=== PATIENT | female | born 1965 | race Caucasian/White ===

== ENCOUNTER 2019-01-16 08:00 | Outpatient (REF) | payer BC, SELFPAY ==
[2019-01-16 21:13] LABS: ALT 27 U/L (14-59); AST 25 U/L (15-37); Albumin 3.8 g/dL (3.4-5.0); Alkaline Phosphatase 106 U/L (46-116); Anion Gap 8.6 mmol/L (3-11); BUN 18 mg/dL (7-18); Bilirubin, Total 0.5 mg/dL (0.2-1.0); CO2 29.4 mmol/L (21.0-32.0); CREATININE 0.89 mg/dL (0.55-1.02); Calculated LDL 150 mg/dL; Chloride 103 mmol/L (98-107); Cholesterol 232 mg/dL (<200); Glucose 107 mg/dL (74-106); HDL Cholesterol 62 mg/dL (40-60); Potassium 4.4 mmol/L (3.5-5.1); Sodium 141 mmol/L (136-145); Total Protein 7.4 g/dL (6.4-8.2); Triglyceride 103 mg/dL (<150)
== END 2019-01-16 08:20 ==
LOC: NCHCN 08:00
PROVIDERS: PCP Family Medicine; Visit Provider Family Medicine
DX: Z00.00 Encounter for general adult medical examination without abnormal findings (principal); E66.01 Morbid (severe) obesity due to excess calories
CPT/HCPCS: 80053; 80061

== ENCOUNTER 2020-04-10 10:17 | Outpatient (REF) | payer BC, SELFPAY ==
[2020-04-10 13:19] LABS: ALT 25 U/L (14-59); AST 27 U/L (15-37); Albumin 3.6 g/dL (3.4-5.0); Alkaline Phosphatase 99 U/L (46-116); Anion Gap 7.7 mmol/L (3-11); BUN 20 mg/dL (7-18); Bilirubin, Total 0.4 mg/dL (0.2-1.0); CO2 28.3 mmol/L (21.0-32.0); CREATININE 0.8 mg/dL (0.55-1.02); Calcium 8.9 mg/dL (8.5-10.1); Calculated LDL 126 mg/dL (<100); Chloride 105 mmol/L (98-107); Cholesterol 207 mg/dL (<200); Glucose 109 mg/dL (74-106); HDL Cholesterol 67 mg/dL (40-60); Potassium 5.1 mmol/L (3.5-5.1); Sodium 141 mmol/L (136-145); Total Protein 7.3 g/dL (6.4-8.2); Triglyceride 73 mg/dL (<150)
== END 2020-04-10 10:18 | disposition home or self-care (01) ==
LOC: NCHCN 10:17
PROVIDERS: PCP Family Medicine; Visit Provider Family Medicine
DX: E66.01 Morbid (severe) obesity due to excess calories (principal)
CPT/HCPCS: 80053; 80061

== ENCOUNTER 2020-04-17 16:32 | Outpatient (REF) | payer BC, SELFPAY ==
--- NOTE | 2020-04-17 14:30 | PAPFT_PTH ---
PATIENT: Alesia Howell LOC: [facility] U#:[id number] AGE/SX: 55/F ROOM: RE04/17/[address]: Seamus Coronado : 1965 BED: DIS: 04/17/2020 SPEC #: [id number] RECD: 04/18/20 12:54 STATUS: EDDA RELast #: [id number] SURYA: 04/17/20 14:[address]: Seamus Coronado DEPT: [facility] Cytology RECD BY: Gayle Alamo Tissues: 1 - CX/ENDOCX FOR PAP SMEARS Procedures: PAP THIN PREP/[facility] Screening HPV DNA PROBE Comments: [id number]
== END 2020-04-17 16:33 | disposition home or self-care (01) ==
LOC: NCHCN 16:32
PROVIDERS: PCP Family Medicine; Visit Provider Family Medicine
DX: Z12.4 Encounter for screening for malignant neoplasm of cervix (principal); Z11.51 Encounter for screening for human papillomavirus (HPV); Z00.00 Encounter for general adult medical examination without abnormal findings
CPT/HCPCS: 88142; 87624

== ENCOUNTER 2022-12-10 20:10 | Outpatient (REF) | payer OTHER, SELFPAY ==
[2022-12-10 15:58] LABS: HCT 46.7 % (36.0-46.0); HGB 15.1 g/dL (11.2-15.7); MCH 27.5 pg (27.0-33.0); MCHC 32.3 % (32.0-36.0); MCV 85 fL (80-95); MPV 10.3 fL (8.0-11.0); Platelet Count 250 10^3/uL (130-400); RBC 5.49 10^6/uL (3.93-5.22); RDW 13.3 % (11.7-14.6); WBC 4.28 10^3/uL (4.4-10.8)
[2022-12-10 16:28] LABS: Hemoglobin A1C 5.7 % (<5.7)
[2022-12-10 16:40] LABS: ALT 26 U/L (14-59); AST 28 U/L (15-37); Albumin 3.7 g/dL (3.4-5.0); Alkaline Phosphatase 94 U/L (46-116); Anion Gap 7.5 mmol/L (3-11); BUN 17 mg/dL (7-18); Bilirubin, Total 0.4 mg/dL (0.2-1.0); CO2 27.5 mmol/L (21.0-32.0); CREATININE 0.8 mg/dL (0.55-1.02); Calcium 9.3 mg/dL (8.5-10.1); Calculated LDL 149 mg/dL (<100); Chloride 106 mmol/L (98-107); Cholesterol 232 mg/dL (<200); Estimated GFR 84.82 (mL/min/1.73m2); Glucose 103 mg/dL (74-106); HDL Cholesterol 63 mg/dL (40-60); Potassium 4.5 mmol/L (3.5-5.1); Sodium 141 mmol/L (136-145); TSH (W/Ref FT4) 3.09 uIU/mL (0.36-3.74); Triglyceride 102 mg/dL (<150)
== END 2022-12-10 20:11 | disposition home or self-care (01) ==
LOC: NCHCN 20:10
PROVIDERS: PCP Family Medicine; Visit Provider Family Medicine
DX: Z00.00 Encounter for general adult medical examination without abnormal findings (principal); E66.01 Morbid (severe) obesity due to excess calories; R73.03 Prediabetes; R06.09 Other forms of dyspnea
CPT/HCPCS: 80053; 80061; 85027; 83036; 84443

== ENCOUNTER 2024-02-17 13:54 | Outpatient (REF) | payer OTHER, SELFPAY ==
--- OUTSIDE RECORDS SUMMARY | 2024-02-17 13:56 | XMS_ITS ---
Author Organization Unknown Address [address] [place] [address] [phone] Phone Care Team Providers Care Cone Cleaner Name Role Phone ODILIA Marrero Attending Unavailable Social History Type Status Start Date End Date Code Code Syst em Smoking History Former smoker [id number] SNOMED CT Sex Female Hospital Discharge Instructions Should you have any questions prior to discharge, please contact a member of your healthcare team. If you have left the hospital and have any questions, please contact your primary care physician. Reason For Referral No Data Found Plan of Treatment PSG NIGHT 03/21/2023 Encounters Encounter Diagnosis Start Date Code Code Sys tem Snoring 12/29/2022 [id number] SNOMED-CT Personal Care Team Section Performer Name Performer Role Active Date Inactive Da te
--- OUTSIDE RECORDS SUMMARY | 2024-02-17 13:56 | XMS_ITS ---
Author Organization Unknown Address [address] [place] [address] [phone] Phone Care Team Providers Care Bridal Sales Consultant Name Role Phone INCO Long Attending Unavailable Social History Type Status Start Date End Date Code Code Syst em Smoking History Former smoker [id number] SNOMED CT Sex Female Hospital Discharge Instructions Should you have any questions prior to discharge, please contact a member of your healthcare team. If you have left the hospital and have any questions, please contact your primary care physician. Reason For Referral No Data Found Plan of Treatment PSG NIGHT 03/21/2023 Encounters Encounter Diagnosis Start Date Code Code Sys tem Other forms of dyspnea 02/11/2023 SNOME D-CT Personal Care Team Section Performer Name Performer Role Active Date Inactive Da te
--- OUTSIDE RECORDS SUMMARY | 2024-02-17 13:56 | XMS_ITS ---
Author Organization Unknown Address [address] [place] [address] [phone] Phone Care Team Providers Care Correctional Substance Abuse Counselor Name Role Phone ERICKBELEM REKHA Attending Unavailable Social History Type Status Start Date End Date Code Code Syst em Smoking History Former smoker [id number] SNOMED CT Sex Female Hospital Discharge Instructions Should you have any questions prior to discharge, please contact a member of your healthcare team. If you have left the hospital and have any questions, please contact your primary care physician. Reason For Referral No Data Found Plan of Treatment PSG NIGHT 03/21/2023 Encounters Encounter Diagnosis Start Date Code Code Sys tem Obstructive sleep apnea (adult) (pediatric) 03/21/2023 SNOMED-CT Personal Care Team Section Performer Name Performer Role Active Date Inactive Da te
--- OUTSIDE RECORDS SUMMARY | 2024-02-17 13:57 | XMS_ITS | Encounter Summary ---
Author Organization [facility] Address [address] [place] [address] Care Team Providers Care Wind Turbine Design Engineer Name Role Phone None, Provider Primary Care Provider Unavailabl e Reason for Referral * Radiology Services (Routine) - New Request Specialty Diagnoses / Procedures Referred By Jacky acuna Referred To Contact Diagnoses Axillary lump, right Procedures MA BREAST CONSULT OUTSIDE IMAGES Adrian Coronado MD 4 [facility] [address] [place] [phone] Phone: tel: fax: Referral ID Status Reason Start Date Expiration Date V isits Requested Visits Authorized [id number] New Request 03/26/2020 1 1 Reason for Visit * Radiology Services (Routine) - New Request Specialty Diagnoses / Procedures Referred By Jacky acuna Referred To Contact Diagnoses Axillary lump, right Procedures MA BREAST CONSULT OUTSIDE IMAGES Adrian Coronado MD 4 [facility] [address] [place] [phone] Phone: tel: fax: Referral ID Status Reason Start Date Expiration Date V isits Requested Visits Authorized [id number] New Request 03/26/2020 1 1 Encounter Details Date Type Department Care Team (Latest Contact Info) Description 03/26/2020 12:15 EST - 03/26/2020 23:59 EST Hospital Encounter [facility] Breast Imaging Mammography - Main [place] [address] [place] [address] Axillary lump, right Discharge Disposition: Home or Self Care Social History Tobacco Use Types Packs/Day Years Used Date Smoking Tobacco: Never Assessed Interpersonal Safety Answer Date Record ed Physically Hurt Never 03/24/2020 Verbally Threaten Not on file 03/24/2020 Comments Unknown Sex and Gender Information Value Date Recorded Sex Assigned at Not on file Legal Sex Female 18:00 EST Gender Identity Not on file Sexual Orientation Not on file documented as of this encounter Discharge Disposition Disposition Code Departure Means Destination Home or Self Care documented in this encounter Plan of Treatment Not on file documented as of this encounter Procedures Procedure Name Priority Date/Time Associated Diagnosis Comments MA BREAST CONSULT OUTSIDE IMAGES Routine 03/26/2020 12:15 EST Axillary lump, right documented in this encounter Results * (ABNORMAL) MA BREAST CONSULT OUTSIDE IMAGES (03/26/2020 12:15 EST) Anatomical Region Laterality Modality Breast Mammography 03/26/2020 15:2 6 EST Narrative 03/26/2020 15:26 EST MA BREAST CONSULT OUTSIDE IMAGES ??03/26/2020 12:20 PM Signs and Symptoms/Comments: Unspecified lump in axillary tail of the right breast Comparison: None. Baseline. Technique: This report represents second read interpretation of diagnostic mammography and ultrasound images obtained at [facility] on March 19, 2020. Findings: Tissue Density: There are scattered areas of fibroglandular density. RIGHT BREAST MAMMOGRAM: 2-D/3-D views of the right breast were performed in the CC, XCCL, and MLO projections. Additionally, a 2-D ML view and 2-D spot (non-magnified) CC views of the right breast were performed. A triangle marker is present over the superior breast, denoting the location of palpable concern. There is no mammographic abnormality seen within the breast tissue immediately subjacent to the triangle marker, however a morphologically normal-appearing lymph node is seen in the right axilla, and may possibly correspond to the area of palpable concern. At the 12:00 position at posterior depth, 13 cm from the nipple, there are grouped microcalcifications. These were evaluated with 2D non-magnified spot views, as the magnification device at the outside facility was reportedly not operational at the time of this examination. Therefore, these calcifications have not undergone magnified imaging at this time. RIGHT BREAST ULTRASOUND: Selected grayscale and color Doppler static ultrasound images of the right breast are provided. On images labeled 6:00, 2 cm from the nipple there is a vague hypoechoic region which measures 0.5 x 0.6 x 0.8 cm. This is within a patch of fibroglandular tissue. This area demonstrates no significant posterior features or internal vascularity. Additional imaging performed later on the same day labeled right breast 6:00 demonstrates calipers on a somewhat elongated tubular shaped hypoechoic structure which measures 1.2 x 0.3 x 1 cm. Given the appearance of the surrounding architecture in this location, this is felt to likely be the same finding as described above. It is difficult to determine if this represents a duct, shadowing from an adjacent Nabil's ligament, or a true mass on the provided still images. Morphologically normal-appearing tissue is seen in the right axilla on images labeled area of palp. Elsewhere throughout the breast there is no suspicious sonographic finding demonstrated on the provided imaging. LEFT BREAST MAMMOGRAM: 2-D/3-D views of the left breast were performed in the CC and MLO projections There is no suspicious mass, unexplained architectural distortion, or suspicious grouped microcalcifications. IMPRESSION RIGHT BREAST: BI-RADS 0: Incomplete- Need additional imaging evaluation and/or prior studies for comparison. IMPRESSION LEFT BREAST: BI-RADS 1: Negative. RECOMMENDATIONS: 1. ??The area of palpable concern in the superior right breast may correspond to an axillary lymph node. Further evaluation with targeted ultrasound of the right axilla is recommended. 2. ??Grouped calcifications in the 12:00 position of the right breast, 13 cm from the nipple have not been evaluated with magnification views. Therefore, 2-D magnified CC and ML spot compression views of these calcifications should be performed for complete assessment. 3. ??Incidental sonographic finding in the right breast at 6:00, 2 cm from the nipple is felt to be incompletely characterized. It is unclear based on the provided images of this represents a duct, shadowing from adjacent Nabil's ligament, or a true mass. Therefore, further evaluation with targeted ultrasound evaluation of the lower right breast is recommended. OVERALL BI-RADS ASSESSMENT: BI-RADS 0: Incomplete- Need additional imaging evaluation and/or prior studies for comparison. us Adrian Coronado MD IMG MAMMOGRAPHY ORDER KEVIN Final Result documented in this encounter Visit Diagnoses Diagnosis Axillary lump, right documented in this encounter Care Teams Wind Turbine Design Engineer Relationship Specialty Start Date End Date None, Provider PCP - General 01/27/11 04/14/20 documented as of this encounter
--- OUTSIDE RECORDS SUMMARY | 2024-02-17 13:57 | XMS_ITS | Encounter Summary ---
Author Organization [facility] Address [address] [place] [address] Care Team Providers Care Lcac Radar Operator/Navigator Name Role Phone None, Provider Primary Care Provider Unavailabl e Reason for Visit * Reason Onset Date Comments Appointment Related 03/27/2020 Encounter Details Date Type Department Care Team (Late st Contact Info) Description 03/27/2020 Telephone [facility] Breast Imaging Mammography - Main [address] [address] Liz Cee Appointment Related Social History Tobacco Use Types Packs/Day Years [...] on file documented as of this encounter Miscellaneous Notes * Telephone Encounter - Liz Cee - 03/27/2020 0925 EST Spoke with patient and she is now scheduled for breast imaging on 04/09/20. documented in this encounter Plan of Treatment Not on file documented as of this encounter Visit Diagnoses Not on filedocumented in this encounter Care Teams Lcac Radar Operator/Navigator Relationship Specialty Start Date End Date None, Provider PCP - General 01/27/11 04/14/20 documented as of this encounter
--- OUTSIDE RECORDS SUMMARY | 2024-02-17 13:57 | XMS_ITS | Encounter Summary ---
Author Organization [facility] Address [address] [place] [address] Care Team Providers Care Avionics Technician Name Role Phone None, Provider Primary Care Provider Unavailabl e Reason for Referral * Radiology Services (Routine) - New Request Specialty Diagnoses / Procedures Referred By Jacky acuna Referred To Contact Diagnoses Inconclusive mammogram Procedures MA BREAST DIAGNOSTIC RIGHT Adrian Coronado MD 4 [facility] [address] [place] [phone] Phone: tel: fax: Referral ID Status Reason Start Date Expiration Date V isits Requested Visits Authorized [id number] New Request 03/27/2020 1 1 Reason for Visit * Radiology Services (Routine) - New Request Specialty Diagnoses / Procedures Referred By Jacky acuna Referred To Contact Diagnoses Inconclusive mammogram Procedures MA BREAST DIAGNOSTIC RIGHT Adrian Coronado MD 4 [facility] [address] [place] [phone] Phone: tel: fax: Referral ID Status Reason Start Date Expiration Date V isits Requested Visits Authorized [id number] New Request 03/27/2020 1 1 Encounter Details Date Type Department Care Team (Latest Contact Info) Description 04/09/2020 9:00 EST - 04/09/2020 9:01 EST Hospital Encounter [facility] Breast Imaging Mammography - Main [place] [address] [place], [place] [address] Inconclusive mammogram Discharge Disposition: Home or Self Care Social History Tobacco Use Types Packs/Day Years Used Date Smoking Tobacco: Never Assessed Interpersonal Safety Answer Date Record ed Physically Hurt Never 03/24/2020 Verbally Threaten Not on file 03/24/2020 Comments No Sex and Gender Information Value Date Recorded Sex Assigned at Not on file Legal Sex Female 18:00 EST Gender Identity Not on file Sexual Orientation Not on file COVID-19 Exposure Response Date Recorded In the last month, have you been in contact with someone who was confirmed or suspected to have Coronavirus / COVID-19? No / Unsure 04/09/2020 9:01 EST documented as of this encounter Discharge Disposition Disposition Code Departure Means Destination Home or Self Care documented in this encounter Plan of Treatment Not on file documented as of this encounter Procedures Procedure Name Priority Date/Time Associated Diagnosis Comments MA BREAST DIAGNOSTIC RIGHT Routine 04/09/2020 9:36 EST Inconclusive mammogram documented in this encounter Results * (ABNORMAL) MA BREAST DIAGNOSTIC RIGHT (04/09/2020 9:36 EST) Anatomical Region Laterality Modality Breast Right Mammography 04/09/2020 11:1 2 EST Impressions 04/09/2020 11:12 EST Right breast: BI-RADS Category 4: Suspicious. Overall BI-RADS Category 4: Suspicious. Recommendation: A stereotactic biopsy is recommended of the coarse heterogeneous and loosely grouped calcifications at 12:00, 13 cm out from the nipple in the right breast. Alternatively a six-month follow-up mammogram with spot magnification CC and ML views was discussed. Currently the patient would like to pursue a stereotactic biopsy and this will be scheduled as soon as possible. The results of the imaging studies were discussed with the patient by Dr. Schwarz Portions of this document may have been prepared with speech recognition software or keyboard data processing operator techniques. Minor irregularities or keyboarding misprints may be present. Narrative 04/09/2020 11:12 EST US BREAST LIMITED RIGHT, MA BREAST DIAGNOSTIC RIGHT 04/09/2020 10:00 AM Signs and Symptoms/Comments: ?? Palp area of concern in superior right breast without mammographic correlate, as well as right breast grouped calcifications at 12:00, 13 cm from nipple, as well as vague hypoechoic region in right breast at 6:00, 2 cm from nipple Comparison: Mammograms and ultrasounds dated 03/19/2020 to present. FINDINGS: Right breast: Spot magnification CC and ML views were performed of calcifications at 12:00, 13 cm from the nipple in the right breast. There are scattered fibroglandular densities. The previously noted calcifications appear loosely grouped and coarse heterogeneous. No definite associated mass or architectural distortion is present. Ultrasound of the upper half of the right breast and targeted to 6:00, 2 cm out from the nipple was performed. No sonographic abnormality is noted to correspond with the palpable lump in the upper outer quadrant of the right breast. No sonographic abnormality is noted to correspond with the calcifications seen on the mammogram. The previously noted vague hypoechoic region at 6:00, 2 cm out from the nipple on the outside ultrasound represents normal appearing ducts. No suspicious masses or lesions are noted. us Adrian Coronado MD IMG MAMMOGRAPHY ORDER KEVIN Final Result documented in this encounter Visit Diagnoses Diagnosis Inconclusive mammogram documented in this encounter Care Teams Avionics Technician Relationship Specialty Start Date End Date None, Provider PCP - General 01/27/11 04/14/20 documented as of this encounter
--- OUTSIDE RECORDS SUMMARY | 2024-02-17 13:57 | XMS_ITS | Encounter Summary ---
Author Organization [facility] Address [address] [place] [address] Care Team Providers Care Turn Supervisor Name Role Phone None, Provider Primary Care Provider Unavailabl e Reason for Visit * (Routine) - Receiving Office to Obtain Authorization Specialty Diagnoses / Procedures Referred By Jacky acuna Referred To Contact Procedures US OUTSIDE IMAGES BREAST Unknown, Provider, MD Referral ID Status Reason Start Date Expiration Date Visits Requested Visits Authorized [id number] Receiving Office to Obtain Authorization 03/24/2020 1 1 Encounter Details Date Type Department Care Team (Latest Contact Info) Description 03/19/2020 0:05 EST - 03/19/2020 23:59 EST Hospital Encounter [facility] Secondary [place] Discharge Disposition: Home or Self Care Social History Tobacco Use Types Packs/Day Years Used Date Smoking Tobacco: Never Assessed Comments Unknown Sex and Gender Information Value [...] Procedure Name Priority Date/Time Associated Diagnosis Comments US OUTSIDE IMAGES BREAST Routine 03/24/2020 11:49 EST documented in this encounter Results * US OUTSIDE IMAGES BREAST (03/24/2020 11:49 EST) Narrative 03/24/2020 11:49 EST This is a non-reportable exam. us Provider Unknown MD MOJICA OTHER IMAGING ORDERABLES Final Result documented in this encounter Visit Diagnoses Not on filedocumented in this encounter Care Teams Turn Supervisor Relationship Specialty Start Date End Date None, Provider PCP - General 01/27/11 04/14/20 documented as of this encounter
--- OUTSIDE RECORDS SUMMARY | 2024-02-17 13:57 | XMS_ITS ---
Author Organization Unknown Address [address] [place] [address] [phone] Phone Care Team Providers Care Applications Coordinator Name Role Phone ODILIA Marrero Attending Unavailable BRENDA Montero Primary Unavailable Social History Type Status Start Date End Date Code Code Syst em Smoking History Former smoker [id number] SNOMED CT Sex Female Hospital Discharge Instructions Should you have any questions prior to discharge, please contact a member of your healthcare team. If you have left the hospital and have any questions, please contact your primary care physician. Reason For Referral No Data Found Plan of Treatment PSG NIGHT 03/21/2023 Encounters Encounter Diagnosis Start Date Code Code Sys tem Obstructive sleep apnea syndrome 07/15/2023 [id number] SNOMED-CT Personal Care Team Section Performer Name Performer Role Active Date Inactive Da te
--- OUTSIDE RECORDS SUMMARY | 2024-02-17 13:57 | XMS_ITS ---
Author Organization Unknown Address [address] [place] [address] [phone] Phone Care Team Providers Care Manager Gaming Name Role Phone ODILIA Marrero Attending Unavailable BRENDA Montero Primary Unavailable Social History Type Status Start Date End Date Code Code Syst em Smoking History Former smoker [id number] SNOMED CT Sex Female Hospital Discharge Instructions [...] Code Sys tem Obstructive sleep apnea syndrome 04/14/2023 [id number] SNOMED-CT Personal Care Team Section Performer Name Performer Role Active Date Inactive Da te
--- OUTSIDE RECORDS SUMMARY | 2024-02-17 13:57 | XMS_ITS | Encounter Summary ---
Author Organization [facility] Address [address] [place] [phone] Care Team Providers Care Urban Redevelopment Specialist Name Role Phone Unavailable Primary Care Provider Unavailabl e Encounter Details Date Type Department Care Team (Late st Contact Info) Description 04/03/2009 Orders Only [facility] Laboratory Services - [facility] ([facility] [address] [place], [place] [phone] Hodan Larose, [facility] [address] [place] [address] [place] [address] Social History Tobacco Use Types Packs/Day Years Used Date Smoking Tobacco: Never Assessed Comments Unknown Sex and Gender Information Value Date Recorded Sex Assigned at Not on file Legal Sex Female 18:00 EST Gender Identity Not on file Sexual Orientation Not on file documented as of this encounter Plan of Treatment Not on file documented as of this encounter Procedures Procedure Name Priority Date/Time Associated Diagnosis Comments CYTOPATHOLOGY Routine 04/03/2009 0:00 EST documented in this encounter Results * CYTOPATHOLOGY (04/03/2009 0:00 EST) Pathology Report: CYTOPATHOLOGY REPORT ? Reports generated via electronic interface contain original data; ? however they are lacking the format of the original report. ? Caution should be taken when reading/interpreti ng unformatted reports. ? Name: ? ALESIA HOWELL S ? Accession #: ? [id number] ? : ? 1965 (Age: 44) ??F ?Collect Date: ? 04/03/2009 ? Location: ? [facility] ? Receive Date: ? 04/07/2009 ? Provider: ?HODAN DIANE RAILROAD FIRER ? Copy to: ? Specimen/Source: ?Pap Test, Cervix/Endocervix, ThinPrep Imaging System ? with manual evaluation ? Last Menstrual Period: ? 01/19/10 ? Other: ? HPVA - HPV testing requested if ASC-US on the current ThinPrep Pap test. ? SPECIMEN ADEQUACY ? Satisfactory for Evaluation ? - transformation zone component present ? GENERAL CATEGORIZATION ? Negative for Intraepithelial Lesion or Malignancy ? Document reviewed and electronically signed by: ? Estuardo Moyer, CT(ASCP) ? Report Date: ??04/08/2009 11:22 ? End of Report ? MORTEZA ANTHONY 04/03/2009 04/07/2009 us Hodan Larose RAILROAD FIRER PATHOLOGY ORDERABLES Final R esult MORTEZA ANTHONY [address] [place] [address] documented in this encounter Visit Diagnoses Not on filedocumented in this encounter
--- OUTSIDE RECORDS SUMMARY | 2024-02-17 13:57 | XMS_ITS | Encounter Summary ---
Author Organization [facility] Address [address] [place] [address] Care Team Providers Care Professor Of Geology Name Role Phone Adrian Coronado MD Primary Care Provide r Encounter Details Date Type Department Care Team (Latest Contact Info) Description 04/15/2020 Travel Social History Tobacco Use Types Packs/Day Years [...] have Coronavirus / COVID-19? No / Unsure 04/15/2020 8:13 EST documented as of this encounter Plan of Treatment Not on file documented as of this encounter Visit Diagnoses Not on filedocumented in this encounter Care Teams Professor Of Geology Relationship Specialty Start Date End Date Adrian Coronado MD [address] [place] [address] [address] [place] [address] PCP - General 04/15/20 documented as of this encounter
--- OUTSIDE RECORDS SUMMARY | 2024-02-17 13:57 | XMS_ITS | Encounter Summary ---
Author Organization [facility] Address [address] [place] [address] Care Team Providers Care Clinical Support Nurse Name Role Phone Adrian Coronado MD Primary Care Provide r Reason for Referral * Radiology Services (Routine) - New Request Specialty Diagnoses / Procedures Referred By Jacky acuna Referred To Contact Diagnoses Breast calcifications Procedures MA BREAST POST BIOPSY CLIP RIGHT Adrian Coronado MD [address] [address] Phone: tel: fax: Referral ID Status Reason Start Date Expiration Date V isits Requested Visits Authorized [id number] New Request 04/11/2020 1 1 Reason for Visit * Radiology Services (Routine) - New Request Specialty Diagnoses / Procedures Referred By Jacky acuna Referred To Contact Diagnoses Breast calcifications Procedures MA BREAST POST BIOPSY CLIP RIGHT Adrian Coronado MD 4 [facility] [address] [place] [address] Phone: tel: fax: Referral ID Status Reason Start Date Expiration Date V isits Requested Visits Authorized [id number] New Request 04/11/2020 1 1 Encounter Details Date Type Department Care Team (Latest Contact Info) Description 04/15/2020 8:15 EST - 04/15/2020 23:59 EST Hospital Encounter [facility] Breast Imaging Mammography - Main [place] [address] [place], [place] [id number] Breast calcifications Discharge Disposition: Home or Self Care Social [...] 8:13 EST documented as of this encounter Discharge Disposition Disposition Code Departure Means Destination Home or Self Care documented in this encounter Plan of Treatment Not on file documented as of this encounter Procedures Procedure Name Priority Date/Time Associated Diagnosis Comments MA BREAST POST BIOPSY CLIP RIGHT Routine 04/15/2020 9:22 EST Breast calcifications documented in this encounter Results * MA BREAST POST BIOPSY CLIP RIGHT (04/15/2020 9:22 EST) Anatomical Region Laterality Modality Breast Right Mammography 04/15/2020 10:0 6 EST Addenda Addendum by Isis Bright MD on 04/17/2020 15:49 EST Addendum: The images and pathology of stereotactic biopsy of calcifications in the right breast were reviewed on April 17, 2020. by Dr. Isis Bright and Dr. Clara Randhawa. The biopsy was performed by Dr. Isis Bright. The pathology shows : A. ??BREAST, RIGHT, 12 O'CLOCK, 13 CM FROM NIPPLE, STEREOTACTIC VACUUM ASSISTED LARGE CORE NEEDLE BIOPSY: - ??Benign breast tissue with fibroadenomatoid change. ??See comment. - ??Calcifications associated with fibroadenomatoid lesion. Comment: The needle core biopsy contains dense, hyalinized fibrosis around ducts with many of these fibrotic ducts coalescing into slightly larger nodules. 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 ??The calcifications are within the lumens of the small ducts. This is felt to be benign and concordant. No specific imaging follow-up is necessary for this benign result. The patient may return to annual screening mammography, which is next due in February 2021. A electronics parts sales representative of the Radiology Department will call the patient with the results and recommendations. Impressions 04/15/2020 10:06 EST Successful stereotactic guided breast biopsy. Narrative 04/15/2020 10:06 EST MA STEREO BREAST BIOPSY RIGHT, ELLIE BREAST POST BIOPSY CLIP RIGHT ??04/15/2020 8:30 AM Clinical History/Comments: calcs History: Coarse heterogeneous calcifications in the right breast at 12:00, 13 cm from the nipple. Request for stereotactic guided core biopsy. Comparisons: Mammogram dated April 09, 2020, March 19, 2020. Procedure/Findings: Written and verbal informed consents were obtained from the patient for this stereotactic guided 1 site biopsy of coarse heterogeneous calcifications in the right breast at 12:00, 13 cm from the nipple on the Affirm prone unit. The risks, benefits, and alternatives to this procedure were explained to the patient. Once the patient's full name, date of , and side of biopsy were confirmed, the patient was positioned in the prone biopsy device for an approach from the craniocaudal. The lesion in question was targeted using stereotaxis. Site verification and skin marking was performed according to established site marking procedure. A safety timeout was performed. The skin was cleansed with Betadine. ??0.5 cc of buffered 1% lidocaine was used for superficial anesthesia and 10 cc of 2% lidocaine with epinephrine were used for deeper anesthesia. The skin was incised with a #11 blade. 3 ??core biopsies were obtained using the Shweebvera 9 gauge vacuum-assisted stereotactic biopsy device. The specimen radiograph showed calcifications in 3 pieces of tissue. A HydroMark type IV coil-shaped was deployed in the area biopsied. Postprocedure digital mammography was performed in the 2-D spot magnification CC and ML projections; demonstrating the clip to be appropriately positioned, correlating to the mammographic finding. ??There has been interval removal of all of the calcifications in question. There were no immediate postprocedure complications. ??The patient was told that our biopsy health care manager will notify her of the results via phone in 3-5 business days. Adrian Coronado MD IM MAMMOGRAPHY ORDER KEVIN Edited Result - Final documented in this encounter Visit Diagnoses Diagnosis Breast calcifications Other (abnormal) findings on radiological examination of breast documented in this encounter Care Teams Clinical Support Nurse Relationship Specialty Start Date End Date Adrian Cornoado MD [address] [address] PCP - General 04/15/20 documented as of this encounter
--- OUTSIDE RECORDS SUMMARY | 2024-02-17 13:57 | XMS_ITS | Encounter Summary ---
Author Organization [facility] Address [address] [place] [address] Care Team Providers Care Solid Waste Technician Name Role Phone None, Provider Primary Care Provider Unavailabl e Reason for Visit * (Routine) - Receiving Office to Obtain Authorization Specialty Diagnoses / Procedures Referred By Jacky acuna Referred To Contact Procedures MA BREAST OUTSIDE IMAGES Unknown, Provider, MD Referral ID Status Reason Start Date Expiration Date Visits Requested Visits Authorized [id number] Receiving Office to Obtain Authorization 03/24/2020 1 1 Encounter Details Date Type Department Care Team (Latest Contact Info) Description 03/19/2020 Hospital Encounter [facility] Secondary Reads [place] Discharge Disposition: Home [...] Name Priority Date/Time Associated Diagnosis Comments MA OUTSIDE IMAGES BREAST OTHER Routine 03/24/2020 11:53 EST documented in this encounter Results * MA BREAST OUTSIDE IMAGES (03/24/2020 11:53 EST) Narrative 03/24/2020 11:53 EST This is a non-reportable exam. us Provider Unknown MD MOJICA OTHER IMAGING ORDERABLES Final Result documented in this encounter Visit Diagnoses Not on filedocumented in this encounter Care Teams Solid Waste Technician Relationship Specialty Start Date End Date None, Provider PCP - General 01/27/11 04/14/20 documented as of this encounter
--- OUTSIDE RECORDS SUMMARY | 2024-02-17 13:57 | XMS_ITS | Encounter Summary ---
Author Organization [facility] Address [address] [place] [address] Care Team Providers Care Expert Medical Writer Name Role Phone Adrian Coronado MD Primary Care Provide r Reason for Visit * Reason Onset Date Comments Follow-up 04/16/2020 Encounter Details Date Type Department Care Team (Late st Contact Info) Description 04/16/2020 Telephone [facility] Breast Imaging Mammography - [place] [phone] [place] Follow-up Social History Tobacco Use Types Packs/Day Years [...] 8:13 EST documented as of this encounter Miscellaneous Notes * Telephone Encounter - Yue Jay - 04/16/2020 1201 EST Patient is doing fine day after biopsy. documented in this encounter Plan of Treatment Not on file documented as of this encounter Visit Diagnoses Not on filedocumented in this encounter Care Teams Expert Medical Writer Relationship Specialty Start Date End Date Adrian Coronado MD 4 [facility] [address] [place] [address] PCP - General 04/15/20 documented as of this encounter
--- OUTSIDE RECORDS SUMMARY | 2024-02-17 13:57 | XMS_ITS | Encounter Summary ---
Author Organization [facility] Address [address] [place] [address] Care Team Providers Care Door Opener Name Role Phone Adrian Coronado MD Primary Care Provide r Reason for Referral * Radiology Services (Routine) - New Request Specialty Diagnoses / Procedures Referred By Jacky acuna Referred To Contact Diagnoses Breast calcifications Procedures MA STEREO BREAST BIOPSY RIGHT Adrian Coronado MD [address] [address] Phone: tel: fax: Referral ID Status Reason Start Date Expiration Date V isits Requested Visits Authorized [id number] New Request 04/11/2020 1 1 Reason for Visit * Radiology Services (Routine) - New Request Specialty Diagnoses / Procedures Referred By Jacky acuna Referred To Contact Diagnoses Breast calcifications Procedures MA STEREO BREAST BIOPSY RIGHT Adrian Coronado MD [address] [address] Phone: tel: fax: Referral ID Status Reason Start Date Expiration Date V isits Requested Visits Authorized [id number] New Request 04/11/2020 1 1 Encounter Details Date Type Department Care Team (Latest Contact Info) Description 04/15/2020 8:15 EST - 04/15/2020 23:59 EST Hospital Encounter [facility] Breast Imaging Mammography - Main [place] [address] [place], [place] [phone] Breast calcifications Discharge Disposition: Home or Self [...] or Self Care documented in this encounter Miscellaneous Notes * Result Encounter Note - Yue Jay - 04/15/2020 0830 EST I told pt results and recommendations of right breast bx done on 04-15-20 (B9). kaelyn 04-18-20 documented in this encounter Plan of Treatment Not on file documented as of this encounter Procedures Procedure Name Priority Date/Time Associated Diagnosis Comments MA STEREO BREAST BIOPSY RIGHT Routine 04/15/2020 9:36 EST Breast calcifications SURGICAL PATHOLOGY Routine 04/15/2020 8: 55 EST Breast calcifications documented in this encounter Results * MA STEREO BREAST BIOPSY RIGHT (04/15/2020 9:36 EST) Anatomical Region Laterality Modality Breast [...] is next due in February 2021. A shared services representative of the Radiology Department will call [...] 3 ??core biopsies were obtained using the [employer] 9 gauge vacuum-assisted stereotactic biopsy device. The [...] ??The patient was told that our biopsy resident care associate will notify her of the results via phone in 3-5 business days. us Adrian Coronado MD IM MAMMOGRAPHY ORDER KEVIN Edited Result - Final * SURGICAL PATHOLOGY (04/15/2020 8:55 EST) Final Diagnosis A. BREAST, RIGHT, 12 O'CLOCK, 13 CM FROM NIPPLE, STEREOTACTIC VACUUM ASSISTED LARGE CORE NEEDLE BIOPSY: - Benign breast tissue with fibroadenomatoid change. See comment. - Calcifications associated with fibroadenomatoid lesion. 04/17/2020 13:51 [facility] Diagnosis Comment The needle core biopsy contains dense, hyalinized fibrosis around ducts with many of these fibrotic ducts coalescing into slightly larger nodules. 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 The calcifications are within the lumens of the small ducts. 04/17/2020 13:51 [facility] Attestation By the signature below, the attending physician certifies that they have 1) personally conducted a gross and/or microscopic examination of the described specimen(s), and/or personally interpreted the results of laboratory testing of the described specimen(s), and 2) personally rendered or confirmed the above diagnosis. 04/17/2020 13:51 [facility] at 1351 Clinical History Clinical diagnosis code: R92.1 right breast calcifications 12 o'clock 13 cm FN 04/17/2020 13:51 [facility] Gross Description A. Received in formalin labelled with proper patient identification (initials M, D) and right breast calcifications 12 o'clock 13 cm FN is a biopsy compartment system with five yellow and white fibrofatty tissue cores (2.6 cm to 0.9 cm in length, and averaging 0.4 cm in diameter). The tissues designated to contain microcalcifications are entirely submitted in A1-A2 and the remaining tissue in A3. Time removed from patient: 0905 hours 04/15/2020 Time placed in formalin: 0905 hours 04/15/2020 Time out of formalin: 1900 hours 04/16/2020 Jose Guadalupe Schaefer 04/15/2020 11:57 04/17/2020 13:51 EST [facility] Performing Lab [facility] 04/17/2020 13:51 EST [facility] Scanned Images 04/17/2020 13:51 EST [facility] Tissue ENTIRE RIGHT BREAST / Unknown 04/15/2020 8:55 EST 04/15/2020 9:47 EST Comment:Right breast stereot actic guided biopsy us Isis Bright MD PATHOLOGY ORDERABLES Final Resul t Performing Organization Address City/State/[facility] Co de Phone Number [facility] [address] [place] [address] documented in this encounter Visit Diagnoses Diagnosis Breast calcifications Other (abnormal) findings on radiological examination of breast documented in this encounter Administered Medications Inactive Administered Medications - up to 3 most recent administrations Medication Order MAR Action Action Date Dose Rate Site lidocaine 1 % 20 mL, sodium bicarbonate 8.4 % 2 mL 22 mL, local infiltration, Administer over 1 Hours, Once (Without Time Specified), 1 dose, Starting on Tue04/15/20 at 0826, Until Tue04/15/20 at 0947, Routine Given 04/15/2020 8:47 EST 0.5 mL lidocaine-EPINEPHrine 2 %-1:100,000 injection 16 mL 16 mL, local infiltration, Once in imaging, 1 dose, Starting on Tue04/15/20 at 0826, Until 04/15/20 at 0847, Routine Given 04/15/2020 8:47 EST 10 mL povidone-iodine (BETADINE) 10 % external solution 30 mL 30 mL, topical, Once in imaging, 1 dose, Starting on Tue04/15/20 at 0826, Until 04/15/20 at 0847 Given 04/15/2020 8:47 EST 30 mL sodium chloride 0.9 % irrigation irrigation, Once in imaging, 1 dose, Starting on Tue04/15/20 at 0826, Until Tue04/15/20 at 0847, Routine Given 04/15/2020 8:47 EST 250 mL documented in this encounter Care Teams Door Opener Relationship Specialty Start Date End Date Adrian Coronado MD [address] [address] PCP - General 04/15/20 documented as of this encounter
--- OUTSIDE RECORDS SUMMARY | 2024-02-17 13:57 | XMS_ITS | Encounter Summary ---
Author Organization [facility] Address [address] [place] [id number] Care Team Providers Care Filing And Polishing Supervisor Name Role Phone Unavailable Primary Care Provider Unavailabl e Encounter Details Date Type Department Care Team (Late st Contact Info) Description 06/11/2010 Results Only [facility] [phone] Osbaldo Veliz MD [address] [place] [address] Social History Tobacco Use Types Packs/Day Years [...] Priority Date/Time Associated Diagnosis Comments CYTOPATHOLOGY Routine 06/11/2010 0:00 EDT documented in this encounter Results * CYTOPATHOLOGY (06/11/2010 0:00 EDT) Pathology Report: CYTOPATHOLOGY REPORT ? Reports generated via electronic interface contain original data; ? however they are lacking the format of the original report. ? Caution should be taken when reading/interpreti ng unformatted reports. ? Name: ? ÁLVARONAA, ALESIA S ? Accession #: ? [id number] ? : ? 1965 (Age: 45) ??F ?Collect Date: ? 06/11/2010 ? Location: ? [facility] ? Receive Date: ? 06/12/2010 ? Provider: ?OSBALDO VELIZ MD ? Copy to: ? Specimen/Source: ?Pap Test, Cervix/Endocervix, ThinPrep Imaging System ? with manual evaluation ? Last Menstrual Period: ? Other: ? Additional clinical information: Pap neg 04/03/2009, ? SPECIMEN ADEQUACY ? Satisfactory for Evaluation ? - transformation zone component present ? GENERAL CATEGORIZATION ? Negative for Intraepithelial Lesion or Malignancy ? Document reviewed and electronically signed by: ? Estuardo N. João, CT(ASCP) ? Report Date: ??06/17/2010 09:48 ? End of Report ? [facility] 06/11/2010 06/12/2010 us Osbaldo Veliz MD PATHOLOGY ORDERABLES Final Resu lt [facility] [address] [place] [address] documented in this encounter Visit Diagnoses Not on filedocumented in this encounter
--- OUTSIDE RECORDS SUMMARY | 2024-02-17 13:57 | XMS_ITS | Encounter Summary ---
Author Organization [facility] Address [address] [place] [address] Care Team Providers Care Final Inspector Motorcyles Name Role Phone Unavailable Primary Care Provider Unavailabl e Encounter Details Date Type Department Care Team (Late st Contact Info) Description 01/01/2011 Results Only [facility] [phone] Osbaldo Veliz MD [address] [place] [address] Social History Tobacco Use Types Packs/Day Years [...] Procedure Name Priority Date/Time Associated Diagnosis Comments SURGICAL PATHOLOGY Routine 01/01/2011 0:00 EST documented in this encounter Results * SURGICAL PATHOLOGY (01/01/2011 0:00 EST) Pathology Report: SURGICAL PATHOLOGY REPORT Reports generated via electronic interface contain original data; however they are lacking the format of the original report. Caution should be taken when reading/interpreti ng unformatted reports. Name: ? ALESIA HOWELL ? Accession #: ? [id number] ? : ? 1965 (Age: 45) ??F ? Collect Date: ? 01/01/2011 ? Location: ? [facility] ? Receive Date: ? 01/01/2011 ? Provider: OSBALDO VELIZ MD Copy to: ? Final Pathologic Diagnosis: ? Endometrium, biopsy: 1. ?Inactive to weakly proliferative endometrium. ??See comment. 2. ? Benign endocervical tissue. 3. ? Squamous metaplasia. Comment: ? Several of the fragments suggest the possibility of a small endometrial polyp or polypoid growth within the background of weakly proliferative endometrium. ??(Dr. Gillis)/[facility] Document reviewed and electronically signed by: ML GILLIS MD Report ??Date: 01/04/2011 17:35 By the signature above, the attending physician certifies that he/she has personally conducted a gross and/or microscopic examination of the described specimens and rendered or confirmed the above diagnosis. Specimen(s) Received: ? Endometrial biopsy Clinical History: ? Menorrhagia; LMP: 11/04/2010; control vasectomy Gross Description: ? Received in formalin labelled Messier, Alesia and endometrial bx are fragments of oshea-brown tissue and mucus that upon filtering measure in aggregate 2.1 x 1.6 x 0.4 cm. ??The specimen is submitted entirely as (A1) and (A2). ??(Dr. Allen)/[facility]rah End of Report MORTEZA ANTHONY 01/01/2011 01/01/2011 16: 11 EST us Osbaldo Veliz MD PATHOLOGY ORDERABLES Final Resu lt [facility] [address] [place] [address] documented in this encounter Visit Diagnoses Not on filedocumented in this encounter
--- OUTSIDE RECORDS SUMMARY | 2024-02-17 13:57 | XMS_ITS | Encounter Summary ---
Author Organization [facility] Address [address] [place] [address] Care Team Providers Care Spinneret Person Name Role Phone Unavailable Primary Care Provider Unavailabl e Encounter Details Date Type Department Care Team (Late st Contact Info) Description 10/12/2002 Results Only [facility] conversion [address] [place] [address] Hodan Larose, [address] [place] [address] Social History Tobacco Use Types [...] Priority Date/Time Associated Diagnosis Comments CYTOPATHOLOGY Routine 10/12/2002 0:00 EDT documented in this encounter Results * CYTOPATHOLOGY (10/12/2002 0:00 EDT) Pathology Report: CYTOPATHOLOGY REPORT Reports generated via electronic interface contain original data; however they are lacking the format of the original report. Caution should be taken when reading/interpreti ng unformatted reports. Name: ? ALESIA HOWELL ? Accession #: ? [id number] : ? 1965 (Age: 37) ??F ?Collect Date: ? 10/12/2002 Location: ? [facility] ? Receive Date: ? 10/16/2002 Provider: ?HODAN LAROSE SECURITY SERVICES SPECIALIST Copy to: ? Specimen/Source: ?ThinPrep Pap Test, Cervix/Endocervix Last Menstrual Period: ? 09/17/02 ? SPECIMEN ADEQUACY ? Satisfactory for Evaluation - transformation zone component present GENERAL CATEGORIZATION ? Negative for Intraepithelial Lesion or Malignancy ? Document reviewed and electronically signed by: ? RAJIV Hall(ASCP) ? Report Date: ??10/19/2002 11:19 End of Report [facility]TE[facility] ANTHONY 10/12/2002 10/16/2002 us Hodan Larose SECURITY SERVICES SPECIALIST PATHOLOGY ORDERABLES Final R esult [facility] [address] [place] [address] documented in this encounter Visit Diagnoses Not on filedocumented in this encounter
--- OUTSIDE RECORDS SUMMARY | 2024-02-17 13:57 | XMS_ITS | Encounter Summary ---
Author Organization [facility] Address [address] [place] [address] Care Team Providers Care Bit Bender Name Role Phone Adrian Coronado MD Primary Care Provide r Encounter Details Date Type Department Care Team (Late st Contact Info) Description 04/21/2020 Lab Requisition [facility] Pathology & Laboratory Medicine - [facility] [address] [place] [address] Adrian Coronado MD [address] [place] [address] [phone] Encounter for general adult medical examination without abnormal findings; Encounter for screening for malignant neoplasm of cervix Social History Tobacco Use Types Packs/Day Years [...] Procedure Name Priority Date/Time Associated Diagnosis Comments PAP TEST Today 04/17/2020 14:30 EST Encounter for general adult medical examination without abnormal findings Encounter for screening for malignant neoplasm of cervix HPV DNA DETECTION WITH GENOTYPING, PCR Today 04/17/2020 14:30 EST Encounter for general adult medical examination without abnormal findings Encounter for screening for malignant neoplasm of cervix documented in this encounter Results * HUMAN PAPILLOMAVIRUS (HPV) DETECTION-HIGH RISK TYPES (04/17/2020 14:30 EST) HPV other High Risk types, PCR Negative Negative 04/29/2020 15:22 [facility] Comment:No E6 or E7 mRNA is detected from HPV types 16,18,31,33,35,39,45,51,52,56,58,59,66, and 68 by insurance inspector mediated amplification. Papanicolaou smear specimen (specimen) CERVIX UTERI STRUCTURE / Unknown 04/17/2020 14:30 EST 04/28/2020 14:15 EST Adrian Coronado MD MICROBIOLOGY - [facility] ORDERABLES Final Result [facility] [address] [place] [address] * PAP TEST (04/17/2020 14:30 EST) Specimens A. Cervix and/or Endocervix , ThinPrep Imaging System with Manual Evaluation 04/29/2020 15:22 [facility] Specimen Adequacy Satisfactory for Evaluation - transformation zone component present 04/29/2020 15:22 [facility] General Categorization Negative for intraepithelial lesion or malignancy 04/29/2020 15:22 [facility] Attestation . 04/29/2020 15:22 [facility] at 1522 Clinical History See below 04/30/19 21 15:22 [facility] HPV The result for the Human Papillomavirus (HPV) Detection-High Risk Types is Negative. No E6 or E7 mRNA is detected from HPV types 16,18,31,33,35,39 ,45,51,52,56,58,5 9,66, and 68 by insurance inspector mediated amplification.Nikki key was performed on specimen [id number] and was resulted on 04/29/2020 1520 EST by TYRESE, LAB INSTRUMENT RESULTS IN 04/29/2020 15:22 EST [facility] Performing Lab [facility] 04/29/2020 15:22 EST [facility] Scanned Images 04/29/2020 15:22 EST [facility] Papanicolaou smear specimen (specimen) CERVIX UTERI STRUCTURE / Unknown 04/17/2020 14:30 EST 04/21/2020 15:11 EST us Adrian Coronado MD PATHOLOGY ORDERABLES Final Result [facility] [address] [place] [address] documented in this encounter Visit Diagnoses Diagnosis Encounter for general adult medical examination without abnormal findings Unspecified general medical examination Encounter for screening for malignant neoplasm of cervix Screening for malignant neoplasm of the cervix documented in this encounter Care Teams Bit Bender Relationship Specialty Start Date End Date Adrian Coronado MD [address] [address] PCP - General 04/15/20 documented as of this encounter
--- OUTSIDE RECORDS SUMMARY | 2024-02-17 13:57 | XMS_ITS | Encounter Summary ---
Author Organization [facility] Address [address] [place] [address] Care Team Providers Care Animal Scientist Name Role Phone None, Provider Primary Care Provider Unavailabl e Reason for Referral * Radiology Services (Routine) - Closed Specialty Diagnoses / Procedures Referred By Jacky acuna Referred To Contact Diagnoses Inconclusive mammogram Procedures US BREAST LIMITED RIGHT Adrian Coronado MD [address] [facility] [address] [place] [address] Phone: tel: fax: Referral ID Status Reason Start Date Expiration Date Visits Re quested Visits Authorized [id number] Closed 03/27/2020 1 1 Reason for Visit * Radiology Services (Routine) - Closed Specialty Diagnoses / Procedures Referred By Jacky acuna Referred To Contact Diagnoses Inconclusive mammogram Procedures US BREAST LIMITED RIGHT Adrian Coronado MD 4 [facility] [address] [place] [address] Phone: tel: fax: Referral ID Status Reason Start Date Expiration Date Visits Re quested Visits Authorized [id number] Closed 03/27/2020 1 1 Encounter Details Date Type Department Care Team (Latest Contact Info) Description 04/09/2020 9:02 EST - 04/09/2020 23:59 EST Hospital Encounter [facility] Breast Imaging Ultrasound - [place] [address] [place], [place] [id number] Inconclusive mammogram Discharge Disposition: Home or Self [...] Name Priority Date/Time Associated Diagnosis Comments US BREAST LIMITED RIGHT Routine 04/09/2020 10:29 EST Inconclusive mammogram documented in this encounter Results * (ABNORMAL) US BREAST LIMITED RIGHT (04/09/2020 10:29 EST) Anatomical Region Laterality Modality Breast Right Ultrasound 04/09/2020 11:1 2 EST Impressions 04/09/2020 11:12 [...] prepared with speech recognition software or keyboard studio data analyst techniques. Minor irregularities or keyboarding misprints may [...] are noted. us Adrian Coronado MD IMG US ORDERABLES Fin al Result documented in this encounter Visit Diagnoses Diagnosis Inconclusive mammogram documented in this encounter Care Teams Animal Scientist Relationship Specialty Start Date End Date None, Provider PCP - General 01/27/11 04/14/20 documented as of this encounter
--- OUTSIDE RECORDS SUMMARY | 2024-02-17 13:57 | XMS_ITS | Clinical Summary ---
Author Organization [facility] Address [address] [place] [id number] Care Team Providers Care Storage Receipt Poster Name Role Phone Adrian Coronado MD Primary Care Provide r Allergies No known active allergies Social History Tobacco Use Types Packs/Day Years Used Date Smoking Tobacco: Never Assessed Interpersonal Safety Answer Date Record ed Physically Hurt Never 03/24/2020 Verbally Threaten Not on file 03/24/2020 Comments No Sex and Gender Information Value Date Recorded Sex Assigned at Not on file Legal Sex Female 18:00 EST Gender Identity Not on file Sexual Orientation Not on file Obstetrics History Para Term AB IAB SAB Ectopic Multiple Livin g Live Births 2 2 Date Outcome GA Total Labor Labor/2nd/3rd Weight Sex Type Anes PTL Harleen A1 A5 Name Clin Para Para Last Filed Vital Signs Vital Sign Reading Time Taken Comments Blood Pressure - - Pulse - - Temperature - - Respiratory Rate - - Oxygen Saturation - - Inhaled Oxygen Concentration - - Weight - - Height 157.5 cm (5' 2) 04/09/2020 0919 EST Body Mass Index - - Plan of Treatment Health Maintenance Due Date Last Done Comments Hepatitis C Screen 1965 COVID-19 Vaccine (2023-25 season) 2023 RSV Immunization ( o r 60+ Years) (1 - 1-dose 75+ series) 2038 Insurance [employer] Care Teams Storage Receipt Poster Relationship Specialty Start Date End Date Adrian Coronado MD [address] [place] [id number] PCP - General 04/15/20
--- OUTSIDE RECORDS SUMMARY | 2024-02-17 13:57 | XMS_ITS | Referral Summary ---
Author Organization [facility] Address [address] [place] [address] Care Team Providers Care Quarry Equipment Operator Name Role Phone Adrian Coronado MD Primary [...] on file Sexual Orientation Not on file Last Filed Vital Signs Vital Sign Reading Time Taken Comments Blood Pressure - - Pulse - - Temperature - - Respiratory Rate - - Oxygen Saturation - - Inhaled Oxygen Concentration - - Weight - - Height 157.5 cm (5' 2) 04/09/2020 0919 EST Body Mass Index - - Plan of Treatment Not on file [facility] Care Teams Quarry Equipment Operator Relationship Specialty Start Date End Date Adrian Coronado MD 4 [facility] [address] [place] [address] PCP - General 04/15/20
--- OUTSIDE RECORDS SUMMARY | 2024-02-17 13:57 | XMS_ITS | Encounter Summary ---
Author Organization [facility] Address [address] [place] [address] Care Team Providers Care Packaging Design Engineer Name Role Phone None, Provider Primary Care Provider Unavailabl e Encounter Details Date Type Department Care Team (Latest Contact Info) Description 04/09/2020 Travel Social History Tobacco Use Types Packs/Day [...] 9:01 EST documented as of this encounter Plan of Treatment Not on file documented as of this encounter Visit Diagnoses Not on filedocumented in this encounter Care Teams Packaging Design Engineer Relationship Specialty Start Date End Date None, Provider PCP - General 01/27/11 04/14/20 documented as of this encounter
--- OUTSIDE RECORDS SUMMARY | 2024-02-17 13:57 | XMS_ITS | Encounter Summary ---
Author Organization [facility] Address [address] [place] [address] Care Team Providers Care Project Manager Interior Design Name Role Phone None, Provider Primary Care Provider Unavailabl e Reason for Visit * (Routine) - Receiving Office to Obtain Authorization Specialty Diagnoses / Procedures Referred By Jacky acuna Referred To Contact Procedures US OUTSIDE IMAGES BREAST Unknown, Provider, MD Referral ID Status Reason Start Date Expiration Date Visits Requested Visits Authorized [id number] Receiving Office to Obtain Authorization 03/24/2020 1 1 Encounter Details Date Type Department Care Team (Latest Contact Info) Description 03/19/2020 Hospital Encounter [facility] Secondary [place] Discharge Disposition: Home or [...] Comments US OUTSIDE IMAGES BREAST Routine 03/24/2020 11:46 EST documented in this encounter Results * US OUTSIDE IMAGES BREAST (03/24/2020 11:46 EST) Narrative 03/24/2020 11:46 EST This is a non-reportable exam. us Provider Unknown MD MOJICA OTHER IMAGING ORDERABLES Final Result documented in this encounter Visit Diagnoses Not on filedocumented in this encounter Care Teams Project Manager Interior Design Relationship Specialty Start Date End Date None, Provider PCP - General 01/27/11 04/14/20 documented as of this encounter
[2024-02-17 21:19] LABS: ALT 20 U/L (14-59); AST 28 U/L (15-37); Albumin 3.6 g/dL (3.4-5.0); Alkaline Phosphatase 115 U/L (46-116); BUN 15 mg/dL (7-18); Bilirubin, Total 0.29 mg/dL (0.2-1.0); Calcium 9.3 mg/dL (8.5-10.1); Chloride 105 mmol/L (98-107); Estimated GFR 64.49 (mL/min/1.73m2); Glucose 146 mg/dL (74-106); Potassium 3.7 mmol/L (3.5-5.1); Sodium 140 mmol/L (136-145); Total Protein 7.9 g/dL (6.4-8.2)
[2024-02-17 21:25] LABS: Hemoglobin A1C 5.7 % (<5.7)
== END 2024-02-17 13:55 | disposition home or self-care (01) ==
LOC: NCHCN 13:54
PROVIDERS: PCP Family Medicine; Visit Provider Family Medicine
DX: E66.01 Morbid (severe) obesity due to excess calories (principal); R73.03 Prediabetes
CPT/HCPCS: 80053; 83036